=== PATIENT | female | born 1965 | race Caucasian/White ===

== ENCOUNTER → 2016-09-10 | Outpatient (CLI) | payer MEDICAID | LOC: OD 14:55 | PROVIDERS: ATTEND Nurse Practitioner Acute Care | DX: S99.912A Unspecified injury of left ankle, initial encounter (principal); X58.XXXA Exposure to other specified factors, initial encounter ==

== ENCOUNTER 2017-07-19 15:33 | Emergency (ER) | payer MEDICAID ==
[2017-07-19] MEDS ORDERED: NORMAL SALINE 1000 ML 1,000 ML IV ONE (16:08)
[2017-07-19] MEDS ORDERED: ACETAMINOPHEN 325 MG TABLET PO ONE (16:08)
--- NOTE | 2017-07-19 16:10 | ER Document Report ---
ED Medical Screen (RME) - General Chief Complaint: Flu Symptoms Stated Complaint: FLU SYMPTOMS Time Seen by Provider: 07/19/17 16:07 Mode of Arrival: Wheelchair Information source: Patient TRAVEL OUTSIDE OF THE [place] IN LAST 30 DAYS: No - HPI Patient complains to provider of: flu symptoms Onset: Other - pt with several day h/o cough, chest congestion, fever, bodyaches , and dizziness - Related Data Allergies/Adverse Reactions: clopidogrel bisulfate [From Plavix] Allergy (Intermediate, Verified 07/19/17 15: 34) angioedema iodine [Iodine] Allergy (Intermediate, Verified 07/19/17 15:34) codeine [Codeine] Allergy (Mild, Verified 07/19/17 15:34) IVP dye Allergy (Intermediate, Uncoded 07/19/17 15:34) Past Medical History - Social History Chew tobacco use (# tins/day): No Frequency of alcohol use: Occasional Drug Abuse: None - Past Medical History Cardiac Medical History: Reports: Hx Coronary Artery Disease - LBBB Endocrine Medical History: Reports: Hx Hypothyroidism Renal/ Medical History: Denies: Hx Peritoneal Dialysis Past Surgical History: Reports: Hx Cardiac Surgery - 4 stents placed september 14, 2013, Hx Cholecystectomy, Hx Tubal Ligation - Immunizations Hx Diphtheria, Pertussis, Tetanus Vaccination: Yes Physical Exam - Vital signs Vitals: Temp Pulse Resp BP Pulse Ox 101.3 F H 101 H 12 150/85 H 92 07/19/17 15:50 07/19/17 15:50 07/19/17 15:50 07/19/17 15:50 07/19/17 15:50 Course - Vital Signs Vital signs: Temp Pulse Resp BP Pulse Ox 101.3 F H 101 H 12 150/85 H 92 07/19/17 15:50 07/19/17 15:50 07/19/17 15:50 07/19/17 15:50 07/19/17 15:50
[2017-07-19 16:46] LABS: APPEARANCE,URINE SLIGHTLY-CLOUDY; BILIRUBIN,URINE NEGATIVE (NEGATIVE); COLOR,URINE YELLOW; GLUCOSE, URINE NEGATIVE (NEGATIVE); KETONES,URINE NEGATIVE (NEGATIVE); LEUKOCYTE ESTERASE,URINE SMALL (NEGATIVE); NITRITE,URINE NEGATIVE (NEGATIVE); PROTEIN,URINE NEGATIVE (NEGATIVE); URINE SPECIFIC GRAVITY 1.011; UROBILINOGEN,URINE NEGATIVE mg/dL (<2.0)
[2017-07-19 16:53] LABS: ABSOLUTE BASOPHILS # (AUTO) 0.1 10^3/uL (0.0-0.2); ABSOLUTE MONOCYTES (AUTO) 0.7 10^3/uL (0.1-1.4); BASOPHILS % (AUTO) 0.9 % (0-2); EOSINOPHILS % (AUTO) 0.5 % (0-6); HEMOGLOBIN 13.8 g/dL (12.0-15.5); LYMPHOCYTES % (AUTO) 14.5 % (13-45); MEAN CORPUSCULAR HEMOGLOBIN 30.4 pg (27.0-33.4); MEAN CORPUSCULAR HGB CONC 33.7 g/dL (32.0-36.0); MEAN CORPUSCULAR VOLUME 90 fl (80-97); MONOCYTES % (AUTO) 10.1 % (3-13); PLATELET COUNT 259 10^3/uL (150-450); RED BLOOD COUNT 4.54 10^6/uL (3.72-5.28); RED CELL DISTRIBUTION WIDTH 14.3 % (11.5-14.0); TOTAL CELLS COUNTED % (AUTO) 100 %; WHITE BLOOD COUNT 6.7 10^3/uL (4.0-10.5)
[2017-07-19 17:06] LABS: ALANINE AMINOTRANSFERASE 25 U/L (9-52); ALBUMIN 4.5 g/dL (3.5-5.0); ALKALINE PHOSPHATASE 85 U/L (38-126); ANION GAP 9 (5-19); ASPARTATE AMINO TRANSFERASE 27 U/L (14-36); BILIRUBIN,DIRECT 0.2 mg/dL (0.0-0.4); BILIRUBIN,TOTAL 0.7 mg/dL (0.2-1.3); BLOOD UREA NITROGEN 6 mg/dL (7-20); CALCIUM 9.7 mg/dL (8.4-10.2); CARBON DIOXIDE 30 mmol/L (22-30); CHLORIDE 103 mmol/L (98-107); GLUCOSE 108 mg/dL (75-110); POTASSIUM 4.2 mmol/L (3.6-5.0); SODIUM 141.6 mmol/L (137-145); TOTAL PROTEIN 7.8 g/dL (6.3-8.2)
--- NOTE | 2017-07-19 17:09 | RADIOLOGY REPORT (SQ) ---
EXAM DESCRIPTION: CHEST PA/LAT COMPLETED DATE/TIME: 07/19/2017 4:58 pm REASON FOR STUDY: cough COMPARISON: None. EXAM PARAMETERS: NUMBER OF VIEWS: two views TECHNIQUE: Digital Frontal and Lateral radiographic views of the chest acquired. RADIATION DOSE: NA LIMITATIONS: none FINDINGS: LUNGS AND PLEURA: No opacities, masses or pneumothorax. No pleural effusion. MEDIASTINUM AND HILAR STRUCTURES: No masses or contour abnormalities. HEART AND VASCULAR STRUCTURES: Heart normal size. No evidence for failure. BONES: No acute findings. HARDWARE: None in the chest. OTHER: No other significant finding. IMPRESSION: NO SIGNIFICANT RADIOGRAPHIC FINDING IN THE CHEST. TECHNICAL DOCUMENTATION: JOB ID: [id number] [employer]- All Rights Reserved
[2017-07-19 18:12] VITALS: BP 150/75
--- NOTE | 2017-07-19 18:12 | ER Document Report ---
ED General - General Mode of Arrival: Wheelchair Information source: Parent TRAVEL OUTSIDE OF THE [place] IN LAST 30 DAYS: No <TIFFANIE MARTINES - Last Filed: 07/19/17 21:03> <NEELAM JONES - Last Filed: 07/19/17 22:21> - General Chief Complaint: Flu Symptoms Stated Complaint: FLU SYMPTOMS Time Seen by Provider: 07/19/17 16:07 Notes: Ms. Feliz is a 51 y.o female with a PMHx of cardiac stent 5 years ago who presents to the ED with flu like symptoms. She reports being sick with similar symptoms 2-3 weeks ago for which she saw a physician and was given antibiotics and steroids to treat an ear infection. She reports that she never fully got over her symptoms but did feel some relief until yesterday when she started to get a cough. She states that her symptoms are worse than they were 2-3 weeks ago. She complains of CP when she coughs, body aches, [place], fever, rhinorrhea, sore throat and nausea. She denies any vomiting or diarrhea. Patient states that she took Mucinex without any relief. (TIFFANIE MARTINES) - Related Data Allergies/Adverse Reactions: clopidogrel bisulfate [From Plavix] Allergy (Intermediate, Verified 07/19/17 15: 34) angioedema iodine [Iodine] Allergy (Intermediate, Verified 07/19/17 15:34) codeine [Codeine] Allergy (Mild, Verified 07/19/17 15:34) IVP dye Allergy (Intermediate, Uncoded 07/19/17 15:34) Past Medical History - General Information source: Patient - Social History Smoking Status: Former Smoker Chew tobacco use (# tins/day): No Frequency of alcohol use: Occasional Drug Abuse: None Lives with: Family Family History: None Patient has suicidal ideation: No Patient has homicidal ideation: No - Past Medical History Cardiac Medical History: Reports: Hx Coronary Artery Disease - LBBB with stent placement Endocrine Medical History: Reports: Hx Hypothyroidism Renal/ Medical History: Denies: Hx Peritoneal Dialysis Past Surgical History: Reports: Hx Cardiac Surgery - 4 stents placed september 14, 2013, Hx Cholecystectomy, Hx Tubal Ligation - Immunizations Hx Diphtheria, Pertussis, Tetanus Vaccination: Yes <TIFFANIE MARTINES - Last Filed: 07/19/17 21:03> - Past Medical History Cardiac Medical History: Reports: Hx Hypertension <BRIDGETNEELAM MINER - Last Filed: 07/19/17 22:21> Review of Systems - Review of Systems Constitutional: Fever EENT: Nose discharge - rhinorrhea, Throat pain Cardiovascular: Chest pain - tightness with cough Respiratory: Cough Gastrointestinal: Nausea. denies: Diarrhea, Vomiting Genitourinary: No symptoms reported Female Genitourinary: No symptoms reported Musculoskeletal: Other - body aches Skin: No symptoms reported Hematologic/Lymphatic: No symptoms reported Neurological/Psychological: Headaches <TIFFANIE MARTINES - Last Filed: 07/19/17 21:03> Physical Exam <TIFFANIE MARTINES - Last Filed: 07/19/17 21:03> <BRIDGETKRISTOFERNEELAM - Last Filed: 07/19/17 22:21> - Vital signs Vitals: Temp Pulse Resp BP Pulse Ox 101.3 F H 101 H 12 150/85 H 92 07/19/17 15:50 07/19/17 15:50 07/19/17 15:50 07/19/17 15:50 07/19/17 15:50 - Notes Notes: GENERAL: Alert, interacts well. No acute distress. HEAD: Normocephalic, atraumatic. EYES: Pupils equal, round, and reactive to light. Extraocular movements intact. ENT: Oral mucosa moist, tongue midline. NECK: Full range of motion. Supple. Trachea midline. LUNGS: Dry cough. Expiratory wheezing more profound anteriorly. No rales, or rhonchi. No respiratory distress. HEART: Regular rate and rhythm. No murmurs, gallops, or rubs. ABDOMEN: Soft, non-tender. Non-distended. Bowel sounds present in all 4 quadrants. EXTREMITIES: Moves all 4 extremities spontaneously. No edema, radial and dorsalis pedis pulses 2/4 bilaterally. No cyanosis. NEUROLOGICAL: Alert and oriented x3. Normal speech. PSYCH: Normal affect, normal mood. SKIN: Warm, dry, normal turgor. No rashes or lesions noted. (TIFFANIE MARTINES) Course - Laboratory Result Diagrams: 07/19/17 16:32 07/19/17 16:32 <TIFFANIE MARTINES - Last Filed: 07/19/17 21:03> - Laboratory Result Diagrams: 07/19/17 16:32 07/19/17 16:32 <NEELAM JONES - Last Filed: 07/19/17 22:21> - Re-evaluation Re-evalutation: 07/19/17 18:13 CBC unremarkable, CMP unremarkable, urinalysis shows small leukocyte esterase, trace bacteria and only 2 WBCs. There are 7 squamous epithelial cells, suspect this is contamination rather than actual urinary tract infection. Chest x-ray unremarkable. Symptoms consistent with influenza. Patient actually has Tamiflu at home at this point because her daughter was given it but decided not to take it. Patient was recommended to take Tamiflu given her comorbidities including history of lung disease as well as history of stenting. Patient will also be treated symptomatically with steroids for her wheezing, she states she already has breathing treatments at home and would not like to try any here and will also be given Phenergan with codeine cough syrup. Discharged home. Patient will take ibuprofen and acetaminophen for muscle aches. (NEELAM JONES) - Vital Signs Vital signs: Temp Pulse Resp BP Pulse Ox 99.1 F 85 18 150/75 H 92 07/19/17 18:11 07/19/17 18:11 07/19/17 18:11 07/19/17 18:11 07/19/17 18:11 - Laboratory Laboratory results interpreted by me: 07/19/17 07/19/17 07/19/17 16:15 16:32 16:32 RDW 14.3 H BUN 6 L Ur Leukocyte Esterase SMALL H Discharge <TIFFANIE MARTINES - Last Filed: 07/19/17 21:03> <NEELAM JONES - Last Filed: 07/19/17 22:21> - Discharge Clinical Impression: Influenza Hypertension Qualifiers: Hypertension type: essential hypertension Qualified Code(s): I10 - Essential ( primary) hypertension Condition: Stable Disposition: HOME, SELF-CARE Additional Instructions: Drink plenty fluids, use your breathing treatments or inhaler up to every 4 hours as needed. Take the steroids as directed until they are gone. Please take the Tamiflu that you already have at home 75 mg twice a day for 5 days. The Phenergan with codeine cough syrup will help with both cough and nausea. The Zofran additionally can help with cough. Please return to the emergency department for worsening shortness of breath or any new or concerning symptoms. Prescriptions: Ondansetron [Zofran Odt 4 mg Tablet] 1 - 2 tab PO Q4HP PRN #10 tab.rapdis PRN Reason: Phenylephrine HCl/Cod/Prometh [Phenergan Vc-Codeine Syrup] 5 ml PO QIDP #120 syrup Prednisone [Sterapred Ds] 1 pkg PO ASDIR PRN 12 Days tab.ds.pk PRN Reason: Forms: Elevated Blood Pressure Referrals: VIRGINIA LOU MD [Primary Care Provider] - Follow up in 3-5 days Scribe Attestation: 07/19/17 22:21 I personally performed the services described in the documentation, reviewed and edited the documentation which was dictated to the scribe in my presence, and it accurately records my words and actions. (NEELAM JONES) Scribe Documentation - Scribe Written by My:: My Verdugo, 1949, 07/19/2017 acting as scribe for :: Felipa <TIFFANIE MARTINES - Last Filed: 07/19/17 21:03>
== END 2017-07-19 18:33 | disposition home or self-care (01) ==
LOC: ER 15:33
DX: J11.1 Influenza due to unidentified influenza virus with other respiratory manifestations (principal); I10 Essential (primary) hypertension; R05 Cough; R07.89 Other chest pain; R51 Headache; R50.9 Fever, unspecified; J34.89 Other specified disorders of nose and nasal sinuses; R11.0 Nausea; I25.10 Atherosclerotic heart disease of native coronary artery without angina pectoris; Z88.8 Allergy status to other drugs, medicaments and biological substances; Z88.5 Allergy status to narcotic agent; Z91.041 Radiographic dye allergy status; Z87.891 Personal history of nicotine dependence; Z95.5 Presence of coronary angioplasty implant and graft
CPT/HCPCS: 99284; 96360; 36415; 85025; 80053; 81001; 71046; J3490; J7030